=== PATIENT | female | born 2000 | race Caucasian/White ===

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

== ENCOUNTER 2021-03-08 10:07 | Emergency (ER) | payer OTHER ==
[~2021-03-08] VITALS: Ht 160 cm; Wt 71.4 kg
[2021-03-08] MEDS ORDERED: STRATTERA60 MG PO (10:23)
[2021-03-08] MEDS ORDERED: SEROQUEL XR50 MG PO (10:23)
[2021-03-08 10:25] VITALS: TEMP 98.4
[2021-03-08 11:00] VITALS: BP 116/76; PULSE 67
== END 2021-03-08 11:10 | disposition home or self-care (01) ==
LOC: COL.ER 10:07
DX: U07.1 COVID-19 (principal); B97.4 Respiratory syncytial virus as the cause of diseases classified elsewhere